=== PATIENT | female | born 1985 | race Caucasian/White ===

== ENCOUNTER 2018-03-02 07:02 | Day surgery (SDC) | payer BC ==
[~2018-03-02 07:02] MED LIST: Lactated Ringers 1,000 ML IV SCH; Sodium Chloride 0.9% 10 ML Syringe FLUSH PRN; Sodium Chloride 0.9% 2.5 ML Syringe FLUSH PRN
[2018-03-02] MEDS ORDERED: Lidocaine 2% 5 ML SDV ONE (07:11)
[2018-03-02] MEDS ORDERED: Propofol 200 MG/20 ML SDV ONE (07:11)
[2018-03-02] MEDS ORDERED: fentaNYL 100 MCG/2 ML SDV ONE (07:11)
[2018-03-02] MEDS ORDERED: Midazolam 1 MG/ML 2 ML SDV ONE (07:11)
--- NOTE | 2018-03-02 07:34 | PCM.PREANE ---
Preanesthetic Assessment - Anesthesia/Transfusion/Family Hx Anesthesia History: Prior Anesthesia Without Reaction Family History of Anesthesia Reaction: No Transfusion History: No Prior Transfusion(s) Intubation History: Unknown - Review of Systems General: No Symptoms Pulmonary: No Symptoms Cardiovascular: No Symptoms Gastrointestinal: No Symptoms, Other (family h/o colon cancer) Neurological: No Symptoms Other: Reports: None - Physical Assessment Height: 1.65 m Weight: 87.997 kg ASA Class: 2 Mental Status: Alert & Oriented x3 Airway Class: Mallampati = 2 Dentition: Reports: Normal Dentition Thyro-Mental Finger Breadths: 3 Mouth Opening Finger Breadths: 3 ROM/Head Extension: Full Lungs: Clear to Auscultation, Normal Respiratory Effort Cardiovascular: Regular Rate, Regular Rhythm - Lab Values: Laboratory Last Values Urine HCG, Qual NEGATIVE (NEGATIVE) 03/02/18 07:04 - Allergies Allergies/Adverse Reactions: Allergies Allergy/AdvReac Type Severity Reaction Status Date / Time No Known Allergies Allergy Verified 02/25/18 10:10 - Blood Blood Available: No - Anesthesia Plan Pre-Op Medication Ordered: None - Acknowledgements Anesthesia Type Planned: MAC Pt an Appropriate Candidate for the Planned Anesthesia: Yes Alternatives and Risks of Anesthesia Discussed w Pt/Guardian: Yes Pt/Guardian Understands and Agrees with Anesthesia Plan: Yes PreAnesthesia Questionnaire HEENT History: Reports: None Respiratory History: Reports: Other (See Below) Other Respiratory History: asthma as a child Gastrointestinal History: Reports: None 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: Endocrine/Metabolic History: Reports: Diabetes, Gestational, Obesity/BMI 30+ - Past Surgical History Head Surgeries/Procedures: Reports: None HEENT Surgical History: Reports: Oral Surgery, Tonsillectomy GI Surgical History: Reports: Cholecystectomy - SUBSTANCE USE Smoking Status *Q: Former Smoker (quit 10 years ago) Recreational Drug Use History: No - HOME MEDS Home Medications: Home Meds medroxyPROGESTERone [Provera] 10 mg PO DAILY 02/25/18 [History] - CURRENT (IN HOUSE) MEDS Current Meds: Current Medications Lactated Ringer's (Ringers, Lactated) 1,000 mls @ 125 mls/hr IV ASDIRECTED JUVENTINO Last Admin: 03/02/18 07:20 Dose: 125 mls/hr Sodium Chloride (Saline Flush) 10 ml FLUSH ASDIRECTED PRN PRN Reason: Keep Vein Open Sodium Chloride (Saline Flush) 2.5 ml FLUSH ASDIRECTED PRN PRN Reason: Keep Vein Open Sodium Chloride (Saline Flush) 10 ml FLUSH ASDIRECTED PRN PRN Reason: Keep Vein Open Sodium Chloride (Saline Flush) 2.5 ml FLUSH ASDIRECTED PRN PRN Reason: Keep Vein Open Discontinued Medications Fentanyl (Sublimaze) Confirm Administered Dose 100 mcg .ROUTE .STK-MED ONE Stop: 03/02/18 07:12 Lidocaine (Xylocaine-Mpf 2%) Confirm Administered Dose 5 ml .ROUTE .STK-MED ONE Stop: 03/02/18 07:12 Midazolam HCl (Versed 1 Mg/Ml) Confirm Administered Dose 2 mg .ROUTE .STK-MED ONE Stop: 03/02/18 07:12 Propofol (Diprivan 20 Ml) Confirm Administered Dose 400 mg .ROUTE .STK-MED ONE Stop: 03/02/18 07:12
[2018-03-02] MEDS ORDERED: Glycopyrrolate 0.2 MG/ML SDV ONE (08:06)
--- NOTE | 2018-03-02 08:24 | PCM.OPNOTE ---
- General Post-Op/Procedure Note Date of Surgery/Procedure: 03/02/18 Operative Procedure(s): Diagnostic colonoscopy Findings: Normal colonoscopy. Grade 3 hemorrhoids Pre Op Diagnosis: Family history of colon cancer Post-Op Diagnosis: Grade 3 hemorrhoids Anesthesia Technique: JEFF Primary Surgeon: Sita Clemens Condition: Good
--- NOTE | 2018-03-02 09:03 | PCM48HPAN ---
Post Anesthesia Note - EVALUATION WITHIN 48HRS OF ANESTHETIC Vital Signs in Normal Range: Yes Patient Participated in Evaluation: Yes Respiratory Function Stable: Yes Airway Patent: Yes Cardiovascular Function Stable: Yes Hydration Status Stable: Yes Pain Control Satisfactory: Yes Nausea and Vomiting Control Satisfactory: Yes Mental Status Recovered: Yes Resp Rate: 15 - COMMENTS/OBSERVATIONS Free Text/Narrative:: no anesthesia problems
--- NOTE | 2018-03-02 11:41 | OR ---
SURGEON: MATA MARTINEZ MD DATE OF PROCEDURE: 03/02/2018 PREOPERATIVE DIAGNOSIS: Family history of colon cancer. POSTOPERATIVE DIAGNOSIS: Grade 3 hemorrhoids. PROCEDURE PERFORMED: Diagnostic colonoscopy. ANESTHESIA: MAC. INSTRUMENT USED: Olympus colonoscope. EXTENT OF EXAM: To the cecum. PREPARATION: Good. LIMITATIONS: None. INDICATIONS: The patient is a 32-year-old female with a family history of colon cancer. The decision was made to proceed with a diagnostic colonoscopy. The patient and I discussed the procedure, expected perioperative course, and risks including bleeding, infection, or damage to surrounding structures including perforation. The patient verbalized understanding and wishes to proceed. PROCEDURE IN DETAIL: The patient was brought into the endoscopy suite and placed in the left lateral decubitus position. A time-out was completed verifying the patient's name, age, date of , allergies, and procedure to be performed. Monitored anesthesia care was induced and continuous oxygen was provided via nasal cannula throughout the procedure. After adequate sedation was achieved, a digital rectal exam was performed. This exam revealed grade 3 hemorrhoids. A well-lubricated colonoscope was inserted into the rectum and advanced under direct visualization to the level of the cecum. The cecum was identified by both visual and anatomic landmarks. Photograph was taken of the cecal cap with the scope retroflexed within the cecum. The scope was then fully withdrawn while examining the color, texture, anatomy, integrity, mucosa from the cecum to the anal canal. The findings were consistent with normal colonic mucosa. The scope was then brought into the rectum and retroflexed to allow visualization of the anal canal opening. This appeared normal and a photograph was taken. The scope was then straightened out and fully withdrawn. The cecum to anus time was 6 minutes. The patient tolerated the procedure well and was taken to PACU in stable condition. ENDOSCOPIC DIAGNOSIS: Grade 3 hemorrhoids. RECOMMENDATIONS: Follow up in 2 weeks to discuss hemorrhoidal disease as well as future colonoscopies. MARTINEZ PIPER /[id number]
== END 2018-03-02 09:00 | disposition home or self-care (01) ==
LOC: MW.SDS 07:02
PROVIDERS: ATTEND Surgery
DX: Z12.11 Encounter for screening for malignant neoplasm of colon (principal); K64.2 Third degree hemorrhoids; Z87.891 Personal history of nicotine dependence; Z80.0 Family history of malignant neoplasm of digestive organs
CPT/HCPCS: 45378; 81025; J2250; J3010; J7120; J2704

== ENCOUNTER 2019-08-04 06:32 | Day surgery (SDC) | payer BC ==
[~2019-08-04 06:32] MED LIST changes: +Sodium Chloride 0.9% 10 ML SDV IV PRN; +ceFAZolin 2 GM in Premix Bag 1 BAG IV ONE
[2019-08-04] MEDS ORDERED: Propofol 200 MG/20 ML SDV ONE (07:03)
[2019-08-04] MEDS ORDERED: fentaNYL 100 MCG/2 ML SDV ONE (07:03)
[2019-08-04] MEDS ORDERED: Midazolam 1 MG/ML 2 ML SDV ONE (07:03)
[2019-08-04] MEDS ORDERED: Dexamethasone 4 MG/ML 5 ML MDV ONE (07:05)
[2019-08-04] MEDS ORDERED: Ondansetron 4 MG/2 ML SDV ONE (07:05)
[2019-08-04] MEDS ORDERED: Lidocaine 1% 20 ML MDV ONE (07:25)
--- NOTE | 2019-08-04 07:36 | PCM.PREANE ---
Preanesthetic Assessment - Anesthesia/Transfusion/Family Hx Anesthesia History: Prior Anesthesia Without Reaction Family History of Anesthesia Reaction: No Transfusion History: No Prior Transfusion(s) Intubation History: Unknown - Review of Systems General: No Symptoms Pulmonary: No Symptoms Cardiovascular: No Symptoms Gastrointestinal: No Symptoms Neurological: No Symptoms Other: Reports: None - Physical Assessment NPO Status Date: 08/04/19 NPO Status Time: 06:00 Vital Signs: Last Vital Signs Temp 96.4 F 08/04/19 06:53 Pulse 70 08/04/19 06:53 Resp 18 08/04/19 06:53 BP 114/71 08/04/19 06:53 Pulse Ox 100 08/04/19 06:53 Height: 5 ft 5 in Weight: 87.543 kg ASA Class: 1 Mental Status: Alert & Oriented x3 Airway Class: Mallampati = 2 Dentition: Reports: Normal Dentition ROM/Head Extension: Full Lungs: Clear to Auscultation, Normal Respiratory Effort Cardiovascular: Regular Rate, Regular Rhythm - Lab Values: Laboratory Last Values Urine HCG, Qual NEGATIVE (NEGATIVE) 08/04/19 06:37 - Allergies Allergies/Adverse Reactions: Allergies Allergy/AdvReac Type Severity Reaction Status Date / Time No Known Allergies Allergy Verified 07/29/19 10:18 - Blood Blood Available: No - Anesthesia Plan Pre-Op Medication Ordered: None - Acknowledgements Anesthesia Type Planned: General Anesthesia Pt an Appropriate Candidate for the Planned Anesthesia: Yes Alternatives and Risks of Anesthesia Discussed w Pt/Guardian: Yes Pt/Guardian Understands and Agrees with Anesthesia Plan: Yes Additional Comments: PMH: asthma inactive dince age 7 Plan: ga/lma, or tiva c mask PreAnesthesia Questionnaire HEENT History: Reports: None Cardiovascular History: Reports: None Respiratory History: Reports: Other (See Below) Other Respiratory History: asthma as a child Gastrointestinal History: Reports: Hemorrhoids Genitourinary History: Reports: 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: Musculoskeletal History: Reports: None Neurological History: Reports: None Psychiatric History: Reports: None Endocrine/Metabolic History: Reports: Diabetes, Gestational, Obesity/BMI 30+ Hematologic History: Reports: None Immunologic History: Reports: None Oncologic (Cancer) History: Reports: None Dermatologic History: Reports: Eczema - Past Surgical History Head Surgeries/Procedures: Reports: None HEENT Surgical History: Reports: Oral Surgery, Tonsillectomy Cardiovascular Surgical History: Reports: None Respiratory Surgical History: Reports: None GI Surgical History: Reports: Cholecystectomy, Colonoscopy Female Surgical History: Reports: Breast Biopsy Endocrine Surgical History: Reports: None Neurological Surgical History: Reports: None Musculoskeletal Surgical History: Reports: None Oncologic Surgical History: Reports: Biopsy of Breast Dermatological Surgical History: Reports: None - SUBSTANCE USE Smoking Status *Q: Former Smoker Tobacco Use Within Last Twelve Months: No - HOME MEDS Home Medications: Home Meds medroxyPROGESTERone [Provera] 10 mg PO DAILY PRN 02/25/18 [History] Copper [Paragard T 380-A] 1 device VAG ONETIME 07/29/19 [History] - CURRENT (IN HOUSE) MEDS Current Meds: Current Medications Lactated Ringer's (Ringers, Lactated) 1,000 mls @ 125 mls/hr IV ASDIRECTED JUVENTINO Last Admin: 08/04/19 07:04 Dose: 125 mls/hr Sodium Chloride (Saline Flush) 10 ml FLUSH ASDIRECTED PRN PRN Reason: Keep Vein Open Sodium Chloride (Saline Flush) 2.5 ml FLUSH ASDIRECTED PRN PRN Reason: Keep Vein Open Sodium Chloride (Normal Saline) 10 ml IV ASDIRECTED PRN PRN Reason: IV Use Discontinued Medications Dexamethasone (Dexamethasone) Confirm Administered Dose 20 mg .ROUTE .STK-MED ONE Stop: 08/04/19 07:06 Fentanyl (Sublimaze) Confirm Administered Dose 100 mcg .ROUTE .STK-MED ONE Stop: 08/04/19 07:04 Cefazolin Sodium/Dextrose 2 gm (/ Premix) 50 mls @ 100 mls/hr IV ONETIME ONE Stop: 08/01/19 12:16 Lidocaine HCl (Xylocaine-Mpf 1%) Confirm Administered Dose 5 ml .ROUTE .STK-MED ONE Stop: 08/04/19 07:06 Lidocaine HCl (Xylocaine 1%) Confirm Administered Dose 20 ml .ROUTE .STK-MED ONE Stop: 08/04/19 07:26 Midazolam HCl (Versed 1 Mg/Ml) Confirm Administered Dose 2 mg .ROUTE .STK-MED ONE Stop: 08/04/19 07:04 Ondansetron HCl (Zofran) Confirm Administered Dose 4 mg .ROUTE .STK-MED ONE Stop: 08/04/19 07:06 Propofol (Diprivan 20 Ml) Confirm Administered Dose 200 mg .ROUTE .[facility] ONE Stop: 08/04/19 07:04
[2019-08-04] MEDS ORDERED: ceFAZolin/Dextrose,Iso-Osmotic 2 GM/50 ML Duplex Bag IV ONE (07:39)
[2019-08-04] MEDS ORDERED: ePHEDrine 50 MG/ML SDV ONE (08:11)
[2019-08-04] MEDS ORDERED: Bupivacaine 0.5% 30 ML SDV ONE (08:12)
[2019-08-04] MEDS ORDERED: Ondansetron 4 MG/2 ML SDV IVPUSH ONE (08:27)
[2019-08-04] MEDS ORDERED: fentaNYL 100 MCG/2 ML SDV IVPUSH PRN (08:27)
[2019-08-04] MEDS ORDERED: Metoclopramide 10 MG/2 ML SDV IVPUSH ONE (08:27)
[2019-08-04] MEDS ORDERED: Ketorolac 30 MG/ML SDV ONE (09:01)
[2019-08-04] MEDS ORDERED: Octyl 2-Cyanoacrylate 1 Tube ONE (09:06)
--- NOTE | 2019-08-04 09:24 | PCM.OPNOTE ---
- General Post-Op/Procedure Note Date of Surgery/Procedure: 08/04/19 Operative Procedure(s): Excision left breast mass Findings: 10 x 7 x 3.5 cm left breast mass located below the nipple and extending into the left upper quadrant Pre Op Diagnosis: Left breast hamartoma Post-Op Diagnosis: same Anesthesia Technique: General LMA Primary Surgeon: Sita Clemens EBL in mLs: 5 Condition: Good
--- NOTE | 2019-08-04 09:38 | PCM.POSTAN ---
POST ANESTHESIA ASSESSMENT - MENTAL STATUS Mental Status: Alert, Oriented - VITAL SIGNS Vital Signs: Last Vital Signs Temp 97.0 F 08/04/19 09:22 Pulse 69 08/04/19 09:27 Resp 22 H 08/04/19 09:27 BP 113/74 08/04/19 09:27 Pulse Ox 98 08/04/19 09:27 - RESPIRATORY Respiratory Status: Respiratory Rate WNL, Airway Patent, O2 Saturation Stable - CARDIOVASCULAR CV Status: Pulse Rate WNL, Blood Pressure Stable - GASTROINTESTINAL GI Status: No Symptoms - POST OP HYDRATION Hydration Status: Adequate & Stable
--- NOTE | 2019-08-04 10:17 | PCM48HPAN ---
Post Anesthesia Note - EVALUATION WITHIN 48HRS OF ANESTHETIC Vital Signs in Normal Range: Yes Patient Participated in Evaluation: Yes Respiratory Function Stable: Yes Airway Patent: Yes Cardiovascular Function Stable: Yes Hydration Status Stable: Yes Pain Control Satisfactory: Yes Nausea and Vomiting Control Satisfactory: Yes Mental Status Recovered: Yes Vital Signs: Last Vital Signs Temp 96.6 F 08/04/19 09:40 Pulse 68 08/04/19 09:55 Resp 16 08/04/19 09:55 BP 114/62 08/04/19 09:55 Pulse Ox 100 08/04/19 09:55
--- NOTE | 2019-08-05 13:19 | OR ---
SURGEON: SITA CLEMENS MD DATE OF PROCEDURE: 08/04/2019 PREOPERATIVE DIAGNOSIS: Left breast hamartoma. POSTOPERATIVE DIAGNOSIS: Left breast hamartoma PROCEDURE PERFORMED: Excision of left breast mass. PRIMARY SURGEON: Sita Clemens MD. ANESTHESIA: General LMA. FLUIDS: See Anesthesia record. ESTIMATED BLOOD LOSS: 5 mL. FINDINGS: A 10 x 7 x 3.5 cm left breast mass located behind the areola and extending into the left upper outer quadrant of the breast. COMPLICATIONS: None. INDICATIONS: The patient is a 33-year-old female, who presented with a left breast mass. She underwent a biopsy that suggested this may be a hamartoma. Given this finding, the breast mass needs to be excised. The patient and I discussed the procedure; expected perioperative course; and risks including bleeding, infection, or damage to surrounding structures, as well as possible cosmetic outcomes, given its size. The patient verbalized understanding and wishes to proceed. PROCEDURE IN DETAIL: The patient was brought into the OR and placed on the OR table in supine position. A time-out was completed verifying the patient's name, age, date of , allergies, and procedure to be performed. General LMA anesthesia was induced. The left chest wall was prepped and draped in usual standard fashion. I anesthetized the upper half of the areolar border with 0.5% Marcaine plain. A 15 blade was used to make a 6 cm incision along the superior border. Cautery was then used to dissect down into the breast tissue. Not far underneath the areolar tissue, I encountered an encapsulated mass. Using blunt dissection and electrocautery, I dissected this mass out from its surrounding tissues. It was located underneath the nipple, but then extended up into the left upper outer quadrant of the breast towards the chest wall. Once it was removed from the surrounding tissues, it was placed on the back table and measured. It measured 10 x 7 x 3.5 cm in size. It was sent in formalin to Pathology, labeled as left breast mass. The mass cavity was inspected for bleeding, and all bleeding was controlled with electrocautery. A medium clip cloth doubling machine operator was brought into the field, and I placed a clip in the posterior border of the cavity. Close to the nipple, a small vessel was clipped to control bleeding. I then began closing the wound cavity with multiple layers of interrupted 3-0 Vicryl suture. Once I had closed the breast tissue up to the level of the nipple, the patient's nipple was inverted due to the redundant tissue above and the wound cavity from behind. A small crescent-shaped ellipse of skin was taken out above the nipple using a 15 blade. The piece of skin I removed was 5 cm x 1 cm x 0.2 cm in size and was discarded. The nipple complex was sutured to the underlying breast tissue with interrupted 3-0 Vicryl sutures. I then lifted up the areola and sutured that to the superior skin. By doing this, the nipple then everted and appeared normal. The skin was then closed with a running 4-0 Monocryl stitch. Dermabond and dressings were applied. The patient tolerated the procedure well and was taken to the PACU in stable condition. MARTINEZ PIPER /[id number] KAUR
== END 2019-08-04 10:20 | disposition home or self-care (01) ==
LOC: MW.SDS 06:32
PROVIDERS: ATTEND Surgery
DX: D24.2 Benign neoplasm of left breast (principal); K64.8 Other hemorrhoids; Z87.891 Personal history of nicotine dependence; Z80.3 Family history of malignant neoplasm of breast
CPT/HCPCS: 81025; A9270-GY; J0690; J1100; J1885; J2001; J2250; J2405; J2704; J3010; J3490; J7120

== ENCOUNTER 2023-11-30 09:02 | Day surgery (SDC) | payer BC ==
[~2023-11-30 09:02] MED LIST changes: +Albuterol 0.083% 2.5 MG/3 ML Neb Soln NEB PRN; +HYDROmorphone 1 MG/ML Syringe IVPUSH PRN; +Metoclopramide 10 MG/2 ML SDV IVPUSH PRN; +Morphine 2 MG/ML SYRINGE IVPUSH PRN; +Naloxone 0.4 MG/ML SDV IVPUSH PRN; +Ondansetron 4 MG/2 ML SDV IVPUSH PRN; +Scopalamine 1mg/3day Transdermal Patch TOP ONE; -Sodium Chloride 0.9% 10 ML SDV IV PRN; +Sodium Chloride 0.9% 20 ML SDV IV PRN; -ceFAZolin 2 GM in Premix Bag 1 BAG IV ONE; +droPERidol 5 MG/2 ML SDV IVPUSH PRN; +fentaNYL 50 MCG/ML SDV IVPUSH PRN
[2023-11-30] MEDS ORDERED: Scopalamine 1mg/3day Transdermal Patch ONE (09:19)
[2023-11-30 09:27] LABS: HEMATOCRIT 31.3 % (37.0-47.0); HEMOGLOBIN 10.2 g/dL (12.0-16.0); MEAN CORPUSCULAR HEMOGLOBIN 26.5 pg (28.0-32.0); MEAN CORPUSCULAR HGB CONC 32.6 g/dL (32.0-36.0); MEAN CORPUSCULAR VOLUME 81.3 fL (83.0-99.0); MEAN PLATELET VOLUME 8.9 fL (9.4-12.3); PLATELET COUNT,PLT 390 K/uL (150-400); RED BLOOD CELL COUNT 3.85 M/uL (4.10-5.30); WHITE BLOOD CELL COUNT,WBC 5.84 K/uL (3.9-11.3)
[2023-11-30] MEDS ORDERED: propofoL 50 ML ONE (09:51)
[2023-11-30] MEDS ORDERED: fentaNYL 100 MCG/2 ML SDV ONE (09:58)
[2023-11-30] MEDS ORDERED: dexmedeTOMIDine HCl 200 MCG/2 ML SDV ONE (09:58)
[2023-11-30] MEDS ORDERED: Dexamethasone 4 MG/ML 5 ML MDV ONE (10:47)
[2023-11-30] MEDS ORDERED: Ondansetron 4 MG/2 ML SDV ONE (10:47)
[2023-11-30] MEDS ORDERED: Magnesium Sulfate (4.06 MEQ/ML) 5 GM/10 ML SDV ONE (10:47)
[2023-11-30] MEDS ORDERED: Ketorolac 30 MG/ML SDV ONE (10:49)
[2023-11-30] MEDS ORDERED: Phenylephrine HCl 0.5 MG/5 ML AMP ONE (10:54)
[2023-11-30] MEDS ORDERED: Propofol 200 MG/20 ML SDV ONE (11:10)
[2023-11-30] MEDS ORDERED: Phenylephrine 1% 10 MG/ML SDV ONE (11:18)
== END 2023-11-30 12:30 | disposition home or self-care (01) ==
LOC: MW.SDS 09:02
PROVIDERS: ATTEND Obstetrics & Gynecology
DX: N93.9 Abnormal uterine and vaginal bleeding, unspecified (principal); N92.0 Excessive and frequent menstruation with regular cycle; E66.9 Obesity, unspecified; Z68.27 Body mass index [BMI] 27.0-27.9, adult; Z87.891 Personal history of nicotine dependence
CPT/HCPCS: 36415; 58353; 84703; 85027; A9270; J0131; J1100; J1885; J2371; J2405; J2704; J3010; J3475; J7120; 00952; J3490

== ENCOUNTER 2025-02-20 07:10 | Day surgery (SDC) | payer BC ==
[~2025-02-20 07:10] MED LIST changes: -Albuterol 0.083% 2.5 MG/3 ML Neb Soln NEB PRN; -HYDROmorphone 1 MG/ML Syringe IVPUSH PRN; -Metoclopramide 10 MG/2 ML SDV IVPUSH PRN; -Morphine 2 MG/ML SYRINGE IVPUSH PRN; -Naloxone 0.4 MG/ML SDV IVPUSH PRN; -Ondansetron 4 MG/2 ML SDV IVPUSH PRN; -Scopalamine 1mg/3day Transdermal Patch TOP ONE; -droPERidol 5 MG/2 ML SDV IVPUSH PRN; -fentaNYL 50 MCG/ML SDV IVPUSH PRN
[2025-02-20] MEDS ORDERED: propofoL 1,000 MG/100 ML 100 ML ONE (07:47)
[2025-02-20] MEDS ORDERED: Bupivacaine 0.25% 30 ML SDV ONE ×2 (07:48→07:51)
[2025-02-20 07:51] LABS: HEMATOCRIT 37.2 % (37.0-47.0); HEMOGLOBIN 12.1 g/dL (12.0-16.0); MEAN CORPUSCULAR HEMOGLOBIN 28.4 pg (28.0-32.0); MEAN CORPUSCULAR HGB CONC 32.5 g/dL (32.0-36.0); MEAN CORPUSCULAR VOLUME 87.3 fL (83.0-99.0); MEAN PLATELET VOLUME 9.5 fL (9.4-12.3); PLATELET COUNT,PLT 346 K/uL (150-400); RED BLOOD CELL COUNT 4.26 M/uL (4.10-5.30)
[2025-02-20] MEDS ORDERED: Methylene Blue 50 MG/10 ML Ampule ONE (07:51)
[2025-02-20] MEDS ORDERED: Naloxone 0.4 MG/ML SDV IVPUSH PRN (07:53)
[2025-02-20] MEDS ORDERED: Ondansetron 4 MG/2 ML SDV IVPUSH PRN ×2 (07:53→10:31)
[2025-02-20] MEDS ORDERED: fentaNYL 100 MCG/2 ML SDV ONE (07:53)
[2025-02-20] MEDS ORDERED: Metoclopramide 10 MG/2 ML SDV IVPUSH PRN (07:53)
[2025-02-20] MEDS ORDERED: Phenylephrine HCl In 0.9% NaCl 1 MG/10 ML Syringe IVPUSH PRN (07:53)
[2025-02-20] MEDS ORDERED: Albuterol 0.083% 2.5 MG/3 ML Neb Soln NEB PRN (07:53)
[2025-02-20] MEDS ORDERED: Morphine 2 MG/ML SYRINGE IVPUSH PRN (07:53)
[2025-02-20] MEDS ORDERED: dexmedeTOMIDine HCl 200 MCG/2 ML SDV ONE (07:54)
[2025-02-20] MEDS ORDERED: Sodium Chloride 0.9% 20 ML ONE (07:54)
[2025-02-20] MEDS ORDERED: Rocuronium Bromide 50 MG/5 ML Syringe ONE (07:58)
[2025-02-20 08:05] LABS: CALCIUM 8.5 mg/dL (8.5-10.1); CARBON DIOXIDE,CO2 23.1 mmol/L (21.0-32.0); CREATININE 0.8 mg/dL (0.6-1.0); EST CRCL DRUG DOSING (CG) 85.8 mL/min; POTASSIUM,K 3.8 mmol/L (3.5-5.1)
[2025-02-20] MEDS ORDERED: Magnesium Sulfate (4.06 MEQ/ML) 5 GM/10 ML SDV ONE (08:58)
[2025-02-20] MEDS ORDERED: ceFAZolin 2 GM Vial ONE (08:58)
[2025-02-20] MEDS ORDERED: Dexamethasone 4 MG/ML 5 ML MDV ONE (09:05)
[2025-02-20] MEDS ORDERED: Ondansetron 4 MG/2 ML SDV ONE (09:05)
[2025-02-20] MEDS ORDERED: propofoL 500 MG/50 ML 50 ML ONE (09:18)
[2025-02-20] MEDS ORDERED: Fluorescein 5 ML Vial ONE (09:50)
[2025-02-20] MEDS ORDERED: Sugammadex Sodium 200 MG/2 ML VIAL IV ONE (09:53)
[2025-02-20] MEDS ORDERED: Ketorolac 30 MG/ML SDV ONE (09:53)
[2025-02-20] MEDS ORDERED: Furosemide 40 MG/4 ML VIAL ONE (10:03)
[2025-02-20] MEDS ORDERED: Promethazine 25 MG/ML SDV IM PRN (10:31)
[2025-02-20] MEDS ORDERED: Morphine 4 MG/ML Syringe IVPUSH PRN (10:31)
[2025-02-20] MEDS: HYDROmorphone 1 MG/ML Syringe IVPUSH PRN (10:41)
[2025-02-20] MEDS: fentaNYL 50 MCG/ML SDV IVPUSH PRN (10:42)
[2025-02-20] MEDS: ceFAZolin 1 GM Vial IM ONE (12:09)
[2025-02-20] MEDS: Ketorolac 30 MG/ML SDV IVPUSH ONE (12:09)
[2025-02-20] MEDS: Scopalamine 1mg/3day Transdermal Patch ONE (12:09)
[2025-02-20] MEDS: Acetaminophen/oxyCODONE 325-5 MG Tab PO PRN ×2 (17:08→21:12)
[2025-02-20] MEDS: Ketorolac 30 MG/ML SDV IVPUSH PRN (18:06)
[2025-02-20] MEDS: Docusate Sodium 100 MG Cap PO SCH (21:12)
[2025-02-21 06:56] LABS: BASOPHILS ABSOLUTE AUTO 0.03 K/uL (0.00-0.20); BASOPHILS PERCENT AUTO 0.2 % (0.0-1.0); EOSINOPHILS ABSOLUTE AUTO 0.02 K/uL (0.00-0.45); EOSINOPHILS PERCENT AUTO 0.1 % (0.0-6.0); HEMATOCRIT 31.4 % (37.0-47.0); HEMOGLOBIN 10.2 g/dL (12.0-16.0); IMMATURE GRAN ABSOLUTE AUTO 0.08 K/uL (0.00-0.05); IMMATURE GRAN PERCENT AUTO 0.5 % (0.0-0.4); LYMPHOCYTES ABSOLUTE AUTO 2.57 K/uL (1.00-4.80); LYMPHOCYTES PERCENT AUTO 16.2 % (24.0-44.0); MEAN CORPUSCULAR HEMOGLOBIN 28.6 pg (28.0-32.0); MEAN CORPUSCULAR HGB CONC 32.5 g/dL (32.0-36.0); MEAN PLATELET VOLUME 9.9 fL (9.4-12.3); MONOCYTES PERCENT AUTO 6.3 % (0.0-8.0); NEUTROPHILS ABSOLUTE AUTO 12.12 K/uL (1.80-7.70); NEUTROPHILS PERCENT AUTO 76.7 % (41.0-71.0); PLATELET COUNT,PLT 306 K/uL (150-400); RED BLOOD CELL COUNT 3.57 M/uL (4.10-5.30); WHITE BLOOD CELL COUNT,WBC 15.82 K/uL (3.9-11.3)
[2025-02-21 07:27] LABS: CALCIUM 7.9 mg/dL (8.5-10.1); CARBON DIOXIDE,CO2 23.7 mmol/L (21.0-32.0); CREATININE 0.7 mg/dL (0.6-1.0); EST CRCL DRUG DOSING (CG) 98.05 mL/min; POTASSIUM,K 3.7 mmol/L (3.5-5.1)
== END 2025-02-21 11:45 | disposition home or self-care (01) ==
LOC: MW.SDS 07:10 → MW.OB 11:53 → MW.SDS 02-21 11:45
PROVIDERS: ATTEND Obstetrics & Gynecology
DX: D25.1 Intramural leiomyoma of uterus (principal); D25.0 Submucous leiomyoma of uterus; D25.2 Subserosal leiomyoma of uterus; N80.03 Adenomyosis of the uterus; N83.01 Follicular cyst of right ovary; N83.8 Other noninflammatory disorders of ovary, fallopian tube and broad ligament; J45.909 Unspecified asthma, uncomplicated; Z87.891 Personal history of nicotine dependence
CPT/HCPCS: 36415; 58552; 64488; 80048; 84703; 85025; 85027; 86850; 86900; 86901; A9270; J0665; J0690; J1100; J1171; J1885; J1938; J2704; J3010; J3475; 00944; J2405; J3490